=== PATIENT | male | born 1980 | race African-American/Black ===

== ENCOUNTER 2021-04-15 08:41 | Emergency (ER) | payer SELFPAY ==
--- NOTE | 2021-04-15 10:37 | EDPHYS ---
Physician Documentation [facility] Name: Jono Rashid Age: 40 yrs Sex: Male : 1980 Arrival Date: 04/15/2021 Time: 08:44 Bed 12 Private MD: ED Physician Cheng Gold HPI: 04/15 10:03 This 40 yrs old Black Male presents to ER via Ambulatory with complaints of Ear kdr pressure and left ear. 10:03 The patient presents with a fullness, Pressure sensation in left ear. The complaints kdr affect the left ear. Onset: The symptoms/episode began/occurred gradually, 2 week(s) ago. Modifying factors: The symptoms are alleviated by nothing, the symptoms are aggravated by nothing. Associated signs and symptoms: The patient has no apparent associated signs or symptoms. Severity of symptoms: At their worst the symptoms were mild in the emergency department the symptoms are unchanged. The patient has not experienced similar symptoms in the past, Patient has had intermittent fullness in both ears for the last month or so. Over the last 2 weeks or so though it has been more significant and still intermittent. The patient has not recently seen a physician. Historical: - Allergies: 09:42 No Known Allergies; jl7 - Home Meds: 09:42 None [Active]; jl7 - PMHx: 09:42 Hypertensive disorder; jl7 - Immunization history:: Client reports receiving the 1st dose of the Covid vaccine, Pfizer. - Social history:: Smoking status: Patient reports the use of cigarette tobacco products, smokes one-half pack cigarettes per day. ROS: 10:03 Constitutional: Negative for fever, chills, and weight loss, Eyes: Negative for injury, kdr pain, redness, and discharge, Neck: Negative for injury, pain, and swelling, Cardiovascular: Negative for chest pain, palpitations, and edema, Respiratory: Negative for shortness of breath, cough, wheezing, and pleuritic chest pain. 10:03 ENT: Positive for ear pain. Exam: 10:03 Constitutional: This is a well developed, well nourished patient who is awake, alert, kdr and in no acute distress. Head/Face: Normocephalic, atraumatic. Eyes: Pupils equal round and reactive to light, extra-ocular motions intact. Lids and lashes normal. Conjunctiva and sclera are non-icteric and not injected. Cornea within normal limits. Periorbital areas with no swelling, redness, or edema. Neck: Trachea midline, no thyromegaly or masses palpated, and no cervical lymphadenopathy. Supple, full range of motion without nuchal rigidity, or vertebral point tenderness. No Meningismus. 10:03 ENT: External ear(s): are unremarkable, Ear canal(s): swelling, that is minimal, of the left canal, TM's: not visable, because of cerumen. Vital Signs: 09:38 BP 124 / 81; Pulse 55; Resp 17; Temp 96.9; Pulse Ox 100% on R/A; Weight 86.18 kg; jl7 Height 5 ft. 10 in. (177.80 cm); Pain 8/10; 10:40 BP 127 / 74; Pulse 60; Resp 16; Pulse Ox 99% on R/A; Pain 0/10; ab2 09:38 Body Mass Index 27.26 (86.18 kg, 177.80 cm) jl7 MDM: 10:03 Data reviewed: vital signs, nurses notes. Counseling: I had a detailed discussion with kdr the patient and/or guardian regarding: the historical points, exam findings, and any diagnostic results supporting the discharge/admit diagnosis, the need for outpatient follow up. 10:36 Patient medically screened. kdr 04/15 10:18 Order name: Zakia. Order: Flush both ears bilaterally kdr Administered Medications: No medications were administered Disposition Summary: 04/15/21 10:36 Discharge Ordered Location: Home kdr Problem: an ongoing problem kdr Symptoms: are unchanged kdr Condition: Stable kdr Diagnosis - Acute actinic otitis externa, left ear kdr - Otitis media in diseases classified elsewhere, left ear kdr Followup: kdr - With: Private Physician - When: Call Dr. Vanessa's office on Sunday morning and they will get you into the office for evaluation - Reason: If symptoms return, Further diagnostic work-up, Recheck today's complaints, Continuance of care, Re-evaluation by your physician Discharge Instructions: - Discharge Summary Sheet kdr - Ear Drops, Adult kdr - Elbow Replacement, Care After kdr - Otitis Media, Adult kdr - Otitis Externa, [id number] kdr Forms: - Medication Reconciliation Form kdr - Thank You Letter kdr - Antibiotic Education kdr Prescriptions: - ofloxacin 0.3 % Otic drops - instill 10 drop by OTIC route once daily Place in left ear once daily; 10 kdr milliliter; Refills: 0, Product Selection Permitted Signatures: Cheng oGld MD MD kdr Leal, Jahala RN RN jl7 Corrections: (The following items were deleted from the chart) 09:42 09:42 PMHx: Hypothyroidism; jl7 jl7 09:43 09:42 Social history: Smoking status: Patient denies any tobacco usage or history of. jl7 jl7
--- NOTE | 2021-04-15 10:37 | ER ---
Nurse's Notes [facility] Name: Jono Rashid Age: 40 yrs Sex: Male : 1980 Arrival Date: 04/15/2021 Time: 08:44 Bed 12 Private MD: Diagnosis: Acute actinic otitis externa, left ear;Otitis media in diseases classified elsewhere, left ear Presentation: 04/15 09:38 Chief complaint: Patient states: Left ear pressure x 1-2 weeks, feels full. Coronavirus jl7 screen: At this time, the client does not indicate any symptoms associated with coronavirus-19. Ebola Screen: No symptoms or risks identified at this time. Initial Sepsis Screen: Does the patient meet any 2 criteria? No. Patient's initial sepsis screen is negative. Does the patient have a suspected source of infection? No. Patient's initial sepsis screen is negative. Risk Assessment: Do you want to hurt yourself or someone else? Patient reports no desire to harm self or others. Onset of symptoms was April 02, 2020. 09:38 Method Of Arrival: Ambulatory 7 09:38 Acuity: GENE 4 jl7 Triage Assessment: 09:42 General: Appears in no apparent distress. uncomfortable, Behavior is calm, cooperative, jl7 appropriate for age. Pain: Complains of pain in left ear Pain currently is 8 out of 10 on a pain scale. EENT: Reports Pressure in left ear. Historical: - Allergies: 09:42 No Known Allergies; jl7 - Home Meds: 09:42 None [Active]; jl7 - PMHx: 09:42 Hypertensive disorder; jl7 - Immunization history:: Client reports receiving the 1st dose of the Covid vaccine, Pfizer. - Social history:: Smoking status: Patient reports the use of cigarette tobacco products, smokes one-half pack cigarettes per day. Screenin:13 Abuse screen: Denies threats or abuse. Denies injuries from another. Nutritional ab2 screening: No deficits noted. Tuberculosis screening: No symptoms or risk factors identified. Fall Risk None identified. Assessment: 10:11 General: Appears in no apparent distress. comfortable, Behavior is calm, cooperative, ab2 appropriate for age. Pain: Complains of pain in left ear Pain currently is 9 out of 10 on a pain scale. Neuro: No deficits noted. Level of Consciousness is awake, alert, obeys commands, Oriented to person, place, time, situation, Appropriate for age Public Health Engineer are equal bilaterally Moves all extremities. Gait is steady, Speech is normal, Facial symmetry appears normal. Cardiovascular: No deficits noted. Reports None Denies chest pain, shortness of breath, Patient's skin is warm and dry. Respiratory: No deficits noted. Airway is patent. GI: No deficits noted. No signs and/or symptoms were reported involving the gastrointestinal system. : No deficits noted. No signs and/or symptoms were reported regarding the genitourinary system. EENT: Ear canal w/ bleeding noted from left ear Reports decreased hearing in left ear. Derm: No deficits noted. No signs and/or symptoms reported regarding the dermatologic system. Musculoskeletal: No deficits noted. No signs and/or symptoms reported regarding the musculoskeletal system. Vital Signs: 09:38 BP 124 / 81; Pulse 55; Resp 17; Temp 96.9; Pulse Ox 100% on R/A; Weight 86.18 kg; jl7 Height 5 ft. 10 in. (177.80 cm); Pain 8/10; 10:40 BP 127 / 74; Pulse 60; Resp 16; Pulse Ox 99% on R/A; Pain 0/10; ab2 09:38 Body Mass Index 27.26 (86.18 kg, 177.80 cm) jl7 ED Course: 08:44 Patient arrived in ED. ds1 09:31 Cheng Gold MD is Attending Physician. kdr 09:42 Triage completed. jl7 09:42 Arm band placed on right wrist. jl7 09:50 Ewa Canela, RN is Primary Nurse. vg1 10:13 Bed in low position. Side rails up X2. ab2 10:13 No provider procedures requiring assistance completed. ab2 10:16 Ear irrigation: Route left ear amount 250ml Patient tolerated well Patient had small ab2 amount of bloody drainage from L ear during irrigation, Pt requested I stop due to pain and relief of ear pressure. 10:41 Patient did not have IV access during this emergency room visit. ab2 Administered Medications: No medications were administered Outcome: 10:36 Discharge ordered by . kdr 10:41 Discharged to home ab2 10:41 Condition: good 10:41 Discharge instructions given to patient, Instructed on discharge instructions, Demonstrated understanding of instructions, follow-up care. 10:51 Patient left the ED. ab2 Signatures: Cheng Gold MD MD kdr Sanford, Demi ds1 Asif Morrow RN RN jl7 Ewa Canela RN RN vg1 Mac Stevens ab2 Corrections: (The following items were deleted from the chart) 09:42 09:42 PMHx: Hypothyroidism; jl7 jl7 09:43 09:42 Social history: Smoking status: Patient denies any tobacco usage or history of. jl7 jl7
[2021-04-15 11:39] VITALS: TEMP 96.9
[2021-04-15 11:41] VITALS: BP 127/74; O2SAT 99
== END 2021-04-15 10:51 | disposition home or self-care (01) ==
LOC: ER 08:41
DX: H60.512 Acute actinic otitis externa, left ear (principal); H66.92 Otitis media, unspecified, left ear; I10 Essential (primary) hypertension; F17.210 Nicotine dependence, cigarettes, uncomplicated
CPT/HCPCS: 99283

== ENCOUNTER 2023-08-04 23:02 | Emergency (ER) | payer SELFPAY ==
--- NOTE | 2023-08-04 23:37 | ER ---
Nurse's Notes [facility] Name: Jono Rashid Age: 43 yrs Sex: Male : 1980 Arrival Date: 08/04/2023 Time: 23:02 Bed IW3 Private MD: Diagnosis: Impacted cerumen, left ear Presentation: 08/03 23:31 Chief complaint: Patient states: got water in my left ear and it has been clogged up km8 for 4-5 days with pain and muffled hearing; denies sore throat or cough. Coronavirus screen: Client denies travel out of the [place] in the last 14 days. Ebola Screen: No symptoms or risks identified at this time. Risk Assessment: Do you want to hurt yourself or someone else? Patient reports no desire to harm self or others. Onset of symptoms was August 01, 2023. 23:31 Method Of Arrival: Ambulatory km8 23:31 Acuity: GENE 4 km8 23:35 Initial Sepsis Screen: Does the patient meet any 2 criteria? No. Patient's initial km8 sepsis screen is negative. Does the patient have a suspected source of infection? No. Patient's initial sepsis screen is negative. Triage Assessment: 23:33 General: Appears in no apparent distress. comfortable, Behavior is calm, cooperative, km8 appropriate for age. Pain: Complains of pain in left ear Pain currently is 3 out of 10 on a pain scale. Quality of pain is described as sharp. EENT: Reports pain in left ear. Neuro: Level of Consciousness is awake, alert, obeys commands, Oriented to person, place, time, situation. Cardiovascular: Denies chest pain, shortness of breath, Patient's skin is warm and dry. Respiratory: Airway is patent Respiratory effort is even, unlabored, Respiratory pattern is regular, symmetrical. GI: No signs and/or symptoms were reported involving the gastrointestinal system. : No signs and/or symptoms were reported regarding the genitourinary system. Derm: No signs and/or symptoms reported regarding the dermatologic system. Skin is intact, is healthy with good turgor, Skin is dry, Skin is pink, warm \T\ dry. normal, Skin temperature is warm. Musculoskeletal: No signs and/or symptoms reported regarding the musculoskeletal system. Range of motion: intact in all extremities. Historical: - Allergies: 23:33 No Known Allergies; km8 - Home Meds: 23:33 None [Active]; km8 - PSHx: 23:33 None; km8 - Immunization history:: Adult Immunizations up to date. - Infectious Disease History:: Denies. - Social history:: Smoking status: Patient reports the use of cigarette tobacco products, smokes one-half pack cigarettes per day, Patient uses alcohol, but reports only rare drinking. street drugs, marijuana. Screenin:34 [facility] ED Fall Risk Assessment (Adult) History of falling in the last 3 months, km8 including since admission No falls in past 3 months (0 pts) Confusion or Disorientation No (0 pts) Intoxicated or Sedated No (0 pts) Impaired Gait No (0 pts) Mobility Assist Device Used No (0 pt) Altered Elimination No (0 pt) Score/Fall Risk Level 0 - 2 = Low Risk Oriented to surroundings, Maintained a safe environment, Educated pt \T\ family on fall prevention, incl call for assistance when getting out of bed, Assessed \T\ reinforced patient's understanding of fall precautions. Abuse screen: Denies threats or abuse. Denies injuries from another. Nutritional screening: No deficits noted. Tuberculosis screening: No symptoms or risk factors identified. Assessment: 23:34 Reassessment: see triage assessment/notes. km8 Vital Signs: 23:35 BP 109 / 90; Pulse 64; Resp 16; Temp 98.6(O); Pulse Ox 98% on R/A; Weight 90.72 kg; km8 Height 5 ft. 10 in. (R); Pain 3/10; 23:35 Body Mass Index 28.70 (90.72 kg, 177.8 cm) km8 23:35 Pain Scale: Adult km8 [place] Coma Score: 23:34 Eye Response: spontaneous(4). Motor Response: obeys commands(6). Verbal Response: km8 oriented(5). Total: 15. ED Course: 23:06 Patient arrived in ED. jj6 23:11 Quinn Evans PA is PHCP. cp 23:11 Richard Patel DO is Attending Physician. cp 23:32 Triage completed. km8 23:33 Arm band placed on right wrist. km8 23:34 Patient has correct armband on for positive identification. km8 23:34 Patient did not have IV access during this emergency room visit. km8 23:36 Noris Vanessa MD is Referral Physician. cp 23:42 Provided Education on: d/c teaching. km8 23:42 No provider procedures requiring assistance completed. km8 Administered Medications: No medications were administered Medication: 23:34 VIS not applicable for this client. km8 Outcome: 23:37 Discharge ordered by . cp 23:42 Discharged to home ambulatory, km8 23:42 Condition: good 23:42 Discharge instructions given to patient, Instructed on discharge instructions, follow up and referral plans. Demonstrated understanding of instructions, follow-up care, 23:42 Patient left the ED. km8 Signatures: Quinn Evans PA PA cp Jeffries, Jennifer jj6 Lilly Garrido, RN RN km8
--- NOTE | 2023-08-04 23:37 | EDPHYS ---
Physician Documentation [facility] Name: Jono Rashid Age: 43 yrs Sex: Male : 1980 Arrival Date: 08/04/2023 Time: 23:02 Bed IW3 Private MD: ED Physician Richard Patle HPI: 08/03 23:33 This 43 yrs old Black Male presents to ER via Ambulatory with complaints of Ear Pain. cp 23:33 The patient presents with a fullness, hearing loss, partial, pain, mild. The complaints cp affect the left ear. Onset: The symptoms/episode began/occurred 5 day(s) ago. Associated signs and symptoms: Pertinent negatives: cough, fever, sinus trouble, sore throat, vomiting. Severity of symptoms: in the emergency department the symptoms are unchanged despite home interventions. Historical: - Allergies: 23:33 No Known Allergies; km8 - Home Meds: 23:33 None [Active]; km8 - PSHx: 23:33 None; km8 - Immunization history:: Adult Immunizations up to date. - Infectious Disease History:: Denies. - Social history:: Smoking status: Patient reports the use of cigarette tobacco products, smokes one-half pack cigarettes per day, Patient uses alcohol, but reports only rare drinking. street drugs, marijuana. ROS: 23:34 Eyes: Negative for injury, pain, redness, and discharge, cp 23:34 Constitutional: Negative for body aches, chills, fever, poor PO intake, 23:34 ENT: Positive for ear pain, hearing loss, Negative for drainage from ear(s), sinus congestion, sinus pain, sore throat, difficulty swallowing, difficulty handling secretions, 23:34 Respiratory: Negative for cough, shortness of breath, wheezing, 23:34 All other systems are negative, Exam: 23:34 Head/Face: Normocephalic, atraumatic. cp 23:34 Constitutional: The patient appears in no acute distress, alert, awake, comfortable, non-toxic, well developed, well nourished, 23:34 Eyes: Periorbital structures: appear normal, Conjunctiva: normal, no exudate, no injection, Sclera: no appreciated abnormality, Lids and lashes: appear normal, bilaterally, 23:34 ENT: External ear(s): are unremarkable, Ear canal(s): cerumen impaction, that is moderate, occluding the left ear canal, right ear canal with mild cerumen impaction and TM visualized and appears dull w/o erythema, Nose: is normal, Mouth: Lips: moist, Oral mucosa: pink and intact, moist, Posterior pharynx: Airway: no evidence of obstruction, patent, 23:34 Neck: ROM/movement: is normal, is supple, without pain, no range of motions limitations, Lymph nodes: no appreciated lymphadenopathy, 23:34 Chest/axilla: Inspection: normal, Vital Signs: 23:35 BP 109 / 90; Pulse 64; Resp 16; Temp 98.6(O); Pulse Ox 98% on R/A; Weight 90.72 kg; km8 Height 5 ft. 10 in. (R); Pain 3/10; 23:35 Body Mass Index 28.70 (90.72 kg, 177.8 cm) km8 23:35 Pain Scale: Adult km8 [place] Coma Score: 23:34 Eye Response: spontaneous(4). Motor Response: obeys commands(6). Verbal Response: km8 oriented(5). Total: 15. MDM: 23:37 Patient medically screened. cp 23:37 Data reviewed: vital signs, nurses notes, and as a result, I will discharge patient. cp 23:37 Differential diagnosis: otitis media, otitis externa, ruptured TM, foreign body, cp cerumen impaction, barotrauma . Counseling: I had a detailed discussion with the patient and/or guardian regarding the historical points, exam findings, and any diagnostic results supporting the discharge/admit diagnosis, to return to the emergency department if symptoms worsen or persist or if there are any questions or concerns that arise at home. Administered Medications: No medications were administered Disposition: 08/04 00:11 I was immediately available on-site in the Emergency Department for consultation in the ms3 care of the patient. Disposition Summary: 08/04/23 23:37 Discharge Ordered Notes: Location: Home cp Problem: new cp Symptoms: are unchanged cp Condition: Stable cp Diagnosis - Impacted cerumen, left ear cp Followup: cp - With: Noris Vanessa MD - When: 2 - 3 days - Reason: Worsening of condition Discharge Instructions: - Discharge Summary Sheet cp - Earwax Buildup, Adult cp - Ear Drops, Adult cp - Ear Irrigation cp Forms: - Medication Reconciliation Form cp - Antibiotic Education cp - Prescription Opioid Use cp - Patient Portal Instructions cp - Leadership Thank You Letter cp Signatures: Quinn Evans PA PA cp Sims, Marcus, DO DO ms3 Lilly Garrido RN RN km8
[2023-08-05] VITALS: BP 109/90; TEMP 98.6; O2SAT 98
== END 2023-08-04 23:42 | disposition home or self-care (01) ==
LOC: ER 23:02
DX: H61.22 Impacted cerumen, left ear (principal)
CPT/HCPCS: 99282